=== PATIENT | male | born 1965 | race American Indian/Alaskan Native ===

== ENCOUNTER 2017-10-02 18:03 | Inpatient (IN) | payer OTHER ==
[2017-10-02] MEDS ORDERED: ASPIRIN PO ONE (18:21)
[2017-10-02 19:12] LABS: Basophils # (Auto) 0.1 K/mm3 (0.0-0.1); Basophils % (Auto) 0.7 % (0.0-1.8); Eosinophils # (Auto) 0.1 K/mm3 (0.0-0.4); Eosinophils % (Auto) 0.5 % (0.0-4.3); Hematocrit 41.8 % (35.5-45.6); Hemoglobin 13.4 gm/dl (11.8-15.2); Lymphocytes # (Auto) 1.6 K/mm3 (1.2-5.4); Lymphocytes % (Auto) 12.9 % (13.4-35.0); Mean Corpuscular HGB Conc 32 % (32-34); Mean Corpuscular Hemoglobin 31 pg (28-32); Mean Corpuscular Volume 96 fl (84-94); Monocytes # (Auto) 0.6 K/mm3 (0.0-0.8); Monocytes % (Auto) 5.1 % (0.0-7.3); Platelet Count 221 K/mm3 (140-440); Red Blood Count 4.37 M/mm3 (3.65-5.03); Red Cell Distribution Width 13.2 % (13.2-15.2)
[2017-10-02 19:22] LABS: BUN/Creatinine Ratio 12; Blood Urea Nitrogen 13 mg/dL (9-20); Calcium 9.3 mg/dL (8.4-10.2); Hemolysis Index 24
--- NOTE | 2017-10-03 01:58 | XRay Report ---
FINAL REPORT EXAM: XR KNEE 3V RT HISTORY: right knee pain, swelling, hx gout COMPARISON: None available. FINDINGS: Three views of the right knee obtained. Mild narrowing of the medial joint space compartment with osteophyte. No acute fracture dislocation. No focal bony erosive changes. No suprapatellar effusion. IMPRESSION: No acute bony abnormality. Mild degenerative changes.
--- NOTE | 2017-10-03 02:09 | XRay Report ---
FINAL REPORT EXAM: XR CHEST 1V AP HISTORY: chest pain COMPARISON: None available. FINDINGS: Frontal view(s) of the chest obtained. Cardiac silhouette within normal limits. No gross consolidation or effusion. No pneumothorax. IMPRESSION: No grossly acute findings.
[2017-10-03] MEDS ORDERED: SUBLIMAZE IV ONE (02:16)
[2017-10-03] MEDS ORDERED: TYLENOL PO ONE (02:18)
[2017-10-03] MEDS ORDERED: BABY ASPIRIN PO ONE (02:19)
[2017-10-03] MEDS ORDERED: NACL 0.9% 1000 ML 1,000 ML IV ONE (02:20)
--- NOTE | 2017-10-03 02:20 | Emergency Department Report ---
HPI - General Chief Complaint: Chest Pain Time Seen by Provider: 10/03/17 01:01 - [facility] HPI: The patient is a 51-year-old male who presents for evaluation of right knee pain. The patient reports severe and constant right knee pain since 3 PM yesterday, throbbing in quality, exacerbated with weightbearing and ambulation, improved with rest and elevation. The patient has secondary complaint of chest pain. Denies. The patient denies penetrating trauma to the right knee, or trauma to the chest. He also denies cough, syncope, hemoptysis, unilateral leg swelling. ED Past Medical Hx - Past Medical History Previous Medical History?: No - Surgical History Past Surgical History?: No - Social History Smoking Status: Never Smoker Substance Use Type: None - Medications Home Medications: Home Medications Medication Instructions Recorded Confirmed Last Taken Type Cyclobenzaprine [Flexeril 10mg] 10 mg PO TID PRN #30 tablet 05/04/14 Unknown Rx Potassium Chloride 10 meq PO QDAY #3 capsule.er 05/04/14 Unknown Rx predniSONE [Deltasone] 50 mg PO QDAY #5 tab 05/04/14 Unknown Rx ED Review of Systems ROS: Stated complaint: CHEST PAIN/SOB/ PAIN (R) KNEE Other details as noted in HPI Constitutional: denies: fever ENT: denies: throat or neck pain Respiratory: denies: cough, shortness of breath Cardiovascular: reports chest pain Endocrine: denies unexplained weight loss or gain Gastrointestinal: denies: abdominal pain, nausea Genitourinary: denies: dysuria Musculoskeletal: reports right knee pain denies: leg swelling Skin: denies: rash Neurological: denies: headache Hematological/Lymphatic: denies: easy bleeding or easy bruising Psych: denies sadness or hopelessness Physical Exam - Physical Exam Vital Signs: Vital Signs 10/02/17 18:15 Temperature 100.1 F H Pulse Rate 81 Respiratory 16 Rate Blood Pressure 153/100 O2 Sat by Pulse 100 Oximetry Physical Exam: General: well-nourished, well-developed, no acute distress Head: Normocephalic, atraumatic Eyes: normal sclera ENT: Mucous membranes are pink and moist Neck: trachea midline, neck supple, No neck stiffness, no cervical adenopathy Respiratory: Breath sounds equal bilaterally, no wheezing, rales, or rhonchi Cardio: S1 and S2 present, no murmurs, rubs, gallops, capillary refill is brisk Abdomen: Normoactive bowel sounds, soft abdomen, no tenderness Chest WALL/Back: No tenderness to palpation of the chest wall, no CVA tenderness with percussion Musc: Right knee effusion and tenderness to palpation present, mild redness and warmth present as well, no crepitus or fluctuance, no open wounds, full passive and active range of motion to the right knee intact, including patellar tendon extensor function, no bruising or ecchymosis, no calf muscle tenderness with compression, the compartments are soft and pliable, no sounds compartments syndrome Skin: No rash Neuro: no facial drooping, normal speech Psych: Normal affect ED Course Vital Signs 10/02/17 18:15 Temperature 100.1 F H Pulse Rate 81 Respiratory 16 Rate Blood Pressure 153/100 O2 Sat by Pulse 100 Oximetry ED Medical Decision Making - Lab Data Result diagrams: 10/02/17 18:23 10/02/17 18:23 - Medical Decision Making The patient was seen and examined by myself. The patient is placed on a registered nurse cardiac and continuous pulse ox. On initial evaluation, the patient was found to be in no distress. Evaluation orders were placed. The patient was found to be febrile. The patient is given a tablet of Tylenol for his fever. Lab results. Elevated wbc of 12. As patient's found to have fever with leukocytosis, and tenderness, redness, and warmth to the right knee, evaluation findings are concerning for septic arthritis of the right knee. The patient is given IV vancomycin and IV Rocephin for treatment of his suspected infection. The on-call hospitalist service was contacted. They agreed to admit the patient for further treatment and close monitoring. The ED admit order was placed. The patient was admitted in guarded condition. Critical care attestation.: If time is entered above; I have spent that time in minutes in the direct care of this critically ill patient, excluding procedure time. ED Disposition Clinical Impression: Dehydration, Acute chest pain Septic joint of right knee joint Qualifiers: Septic arthritis organism: due to unspecified organism Qualified Code(s): M00.9 - Pyogenic arthritis, unspecified Disposition: OP ADMIT IP TO THIS HOSP Is pt being admited?: Yes Does the pt Need Aspirin: Yes Condition: Serious Time of Disposition: 01:58
[2017-10-03] MEDS ORDERED: VANCOMYCIN PHARMACY TO DOSE IV SCH (03:00)
[2017-10-03] MEDS ORDERED: VANCOMYCIN 1,500 MG in NACL 0.9% 500 ML 500 ML IV ONE (03:00)
[2017-10-03] MEDS ORDERED: ZOFRAN IV ONE (03:00)
[2017-10-03] MEDS ORDERED: VANCOMYCIN/NS 1 GM/250 ML 1 GM/250 ML BAG IV SCH (03:00)
[2017-10-03] MEDS ORDERED: MORPHINE IV PRN (03:57)
[2017-10-03] MEDS ORDERED: SODIUM CHLORIDE FLUSH SYRINGE 10 ML IV PRN (03:57)
[2017-10-03] MEDS ORDERED: TYLENOL PO PRN (03:57)
[2017-10-03] MEDS ORDERED: ZOFRAN IV PRN (03:57)
--- NOTE | 2017-10-03 04:01 | History and Physical Report ---
History of Present Illness Date of examination: 10/03/17 History of present illness: 51-year-old man with a normal medical problem comes to the emergency room complaining of chest pain located in the left chest which she described as a sharp pain that started this morning. Pain is intermittent for hours, intensity 6/10, no radiation, he cannot identify exacerbating or relieving factors. No nausea vomiting, diaphoresis, shortness of breath. Also complaining of right knee pain Review of systems Constitutional: no weight loss, chills, fever Ears, eyes, nose, mouth and throat: no nasal congestion, no nasal discharge, no sinus pressure, no vision change, no red eye. Neck: No neck pain or rigidity. Cardiovascular: no palpitations Respiratory: no cough, shortness of breath Gastrointestinal: no abdominal pain hematochezia Genitourinary : no frequency , no hematuria Musculoskeletal: no joint swelling or muscle ache Integumentary: no rash, no pruritis Neurological: no parathesias, no numbness, no focal weakness Endocrine: no cold or heat intolerance, no polyuria or polydipsia Hematologic/Lymphatic: no easy bruising, no easy bleeding, no gland swelling Allergic/Immunologic: no urticaria, no angioedema. PAST MEDICAL HISTORY: None PAST SURGICAL HISTORY: None SOCIAL HISTORY: No alcohol, no drugs, tobacco FAMILY HISTORY: Hypertension Medications and Allergies Allergies Allergy/AdvReac Type Severity Reaction Status Date / Time No Known Allergies Allergy Verified 07/11/15 01:22 Home Medications Medication Instructions Recorded Confirmed Last Taken Type Cyclobenzaprine [Flexeril 10mg] 10 mg PO TID PRN #30 tablet 05/04/14 Unknown Rx Potassium Chloride 10 meq PO QDAY #3 capsule.er 05/04/14 Unknown Rx predniSONE [Deltasone] 50 mg PO QDAY #5 tab 05/04/14 Unknown Rx Active Meds: Active Medications Acetaminophen (Tylenol) 650 mg PO Q4H PRN PRN Reason: Pain MILD(1-3)/Fever >100.5/[place] Enoxaparin Sodium (Lovenox) 30 mg SUB-Q QDAY [facility] Vancomycin HCl 1,500 mg/ (Sodium Chloride) 515 mls @ 333.333 mls/hr IV ONCE ONE Stop: 10/03/17 04:32 Last Admin: 10/03/17 03:58 Dose: 333.333 mls/hr Vancomycin HCl 1,250 mg/ (Sodium Chloride) 262.5 mls @ 166.667 mls/hr IV Q12H [facility] Ceftriaxone Sodium (Rocephin/Ns 1 Gm/50 Ml) 1 gm in 50 mls @ 100 mls/hr IV Q24HR [facility]; Protocol Morphine Sulfate (Morphine) 2 mg IV Q4H PRN PRN Reason: Pain, Moderate (4-6) Ondansetron HCl (Zofran) 4 mg IV Q8H PRN PRN Reason: Nausea And Vomiting Sodium Chloride (Sodium Chloride Flush Syringe 10 Ml) 10 ml IV BID [facility] Sodium Chloride (Sodium Chloride Flush Syringe 10 Ml) 10 ml IV PRN PRN PRN Reason: LINE FLUSH Vancomycin HCl (Vancomycin Pharmacy To Dose) 1 each IV PKCONSULT [facility] Exam - Physical Exam Narrative exam: Gen. appearance: Patient lying in bed, no apparent distress HEENT: Normocephalic, atraumatic, pupils equally round and reactive to light, extraocular movement intact, and no sclericterus,. No JVD or thyromegaly or nodule,neck supple, no carotid bruit ,mucous membranes moist, no exudate or erythema Heart: S1, S2, regular rate and rhythm Lungs: Clear bilaterally, breathing comfortable Abdomen: Positive bowel sounds, non-tender, nondistended, no organomegaly Extremity: Right knee tenderness, no swelling or effusion, no edema cyanosis, clubbing Skin: no rash, dry, warm Neuro: Oriented 3, cranial nerves II-12 intact, speech is fluent, motor and sensory intact - Constitutional Vitals: Temp Pulse Resp BP Pulse Ox 99.9 F H 87 18 97/54 98 10/03/17 02:26 10/03/17 02:26 10/03/17 02:26 10/03/17 02:26 10/03/17 02:26 Results - Labs CBC & Chem 7: 10/02/17 18:23 10/02/17 18:23 Labs: Abnormal lab results 10/02/17 10/02/17 Range/Units 18:23 18:23 WBC 12.2 H (4.5-11.0) K/mm3 MCV 96 H (84-94) fl Lymph % (Auto) 12.9 L (13.4-35.0) % Seg Neutrophils % 80.8 H (40.0-70.0) % Seg Neutrophils # 9.9 H (1.8-7.7) K/mm3 Chloride 97.4 L (98-107) mmol/L Glucose 110 H (75-100) mg/dL - Imaging and Cardiology EKG: image reviewed Chest x-ray: report reviewed Assessment and Plan Assessment Chest pain, rule out ACS Right knee pain Fever Plan Admit medicine Start IV morphine,emperic Antibiotic, stress test Orthopedic is consulted see the patient DVT prophylaxis
[2017-10-03] MEDS ORDERED: BENADRYL IV PRN (05:19)
[2017-10-03] MEDS ORDERED: ROCEPHIN/NS 2 GM/100 ML 2 GM/100 ML BAG IV SCH (10:00)
[2017-10-03] MEDS ORDERED: LEXISCAN IV ONE ×2 (11:14→11:22)
[2017-10-03] MEDS ORDERED: VANCOMYCIN 1,250 MG in NACL 0.9% 250ML 250 ML IV SCH (12:00)
[2017-10-03] MEDS: ROCEPHIN/NS 1 GM/50 ML 1 GM/50 ML BAG IV SCH (14:15)
[2017-10-03] MEDS: LOVENOX SUB-Q SCH (14:16)
[2017-10-03] MEDS: SODIUM CHLORIDE FLUSH SYRINGE 10 ML IV SCH ×2 (14:17→22:00)
[2017-10-03 14:51] LABS: Hemoglobin 12.5 gm/dl (11.8-15.2); Mean Corpuscular HGB Conc 33 % (32-34); Mean Corpuscular Hemoglobin 31 pg (28-32); Mean Corpuscular Volume 95 fl (84-94); Platelet Count 196 K/mm3 (140-440); Red Blood Count 4.01 M/mm3 (3.65-5.03); Red Cell Distribution Width 12.9 % (13.2-15.2)
--- NOTE | 2017-10-03 17:35 | Event Note ---
Date: 10/03/17 patient with chest pain, right knee pain
--- NOTE | 2017-10-03 19:05 | Consultation ---
History of Present Illness - HPI Consult date: 10/03/17 Consult reason: joint pain History of present illness: 51-year-old male who complains of right knee pain and swelling patient denies a history of trauma states he has had an episode of gout to his left lower extremity last year patient also admits that his father has gout too, asked to evaluate for the possibility of septic joint Medications and Allergies Allergies Allergy/AdvReac Type Severity Reaction Status Date / Time vancomycin Allergy Itching Verified 10/03/17 05:30 Active Meds: Active Medications Acetaminophen (Tylenol) 650 mg PO Q4H PRN PRN Reason: Pain MILD(1-3)/Fever >100.5/[place] Diphenhydramine HCl (Benadryl) 25 mg IV Q6H PRN PRN Reason: Itching Last Admin: 10/03/17 05:29 Dose: 25 mg Enoxaparin Sodium (Lovenox) 40 mg SUB-Q QDAY [facility] Last Admin: 10/03/17 14:16 Dose: 40 mg Ceftriaxone Sodium (Rocephin/Ns 1 Gm/50 Ml) 1 gm in 50 mls @ 100 mls/hr IV Q24HR [facility]; Protocol Last Admin: 10/03/17 14:15 Dose: 100 mls/hr Morphine Sulfate (Morphine) 2 mg IV Q4H PRN PRN Reason: Pain, Moderate (4-6) Ondansetron HCl (Zofran) 4 mg IV Q8H PRN PRN Reason: Nausea And Vomiting Sodium Chloride (Sodium Chloride Flush Syringe 10 Ml) 10 ml IV BID [facility] Last Admin: 10/03/17 14:17 Dose: 10 ml Sodium Chloride (Sodium Chloride Flush Syringe 10 Ml) 10 ml IV PRN PRN PRN Reason: LINE FLUSH Physical Examination - Physical exam Narrative exam: At the patient's right knee there is a 1-2+ joint effusion patient is able to actively flex and extend as well as passively there is no overlying redness or erythema Plain x-rays right knee were reviewed by me and show mild degenerative changes only Assessment and Plan Right knee effusion doubt septic origin most likely a gouty attack Recommend observation uric acid levels and treatment with allopurinol or a nonsteroidal anti-inflammatory
[2017-10-04 07:30] LABS: Basophils # (Auto) 0.1 K/mm3 (0.0-0.1); Basophils % (Auto) 0.9 % (0.0-1.8); Eosinophils # (Auto) 0.2 K/mm3 (0.0-0.4); Hematocrit 38.2 % (35.5-45.6); Hemoglobin 12.6 gm/dl (11.8-15.2); Lymphocytes # (Auto) 2.5 K/mm3 (1.2-5.4); Lymphocytes % (Auto) 37.9 % (13.4-35.0); Mean Corpuscular HGB Conc 33 % (32-34); Mean Corpuscular Hemoglobin 31 pg (28-32); Mean Corpuscular Volume 94 fl (84-94); Monocytes # (Auto) 0.6 K/mm3 (0.0-0.8); Monocytes % (Auto) 9.8 % (0.0-7.3); Platelet Count 196 K/mm3 (140-440); Red Blood Count 4.05 M/mm3 (3.65-5.03); Red Cell Distribution Width 12.6 % (13.2-15.2)
[2017-10-04 07:51] LABS: BUN/Creatinine Ratio 12; Blood Urea Nitrogen 12 mg/dL (9-20); Calcium 8.7 mg/dL (8.4-10.2); Hemolysis Index 3
[2017-10-04] MEDS ORDERED: MOTRIN PO PRN (08:30)
[2017-10-04 09:42] VITALS: BP 116/78
--- NOTE | 2017-10-04 10:42 | Treadmill Report ---
NUCLEAR PERFUSION SCAN NUCLEAR STRESS TEST PROTOCOL: The patient was brought to the stress lab in a postabsorptive state, given 10 mCi of technetium 99m at rest. The patient underwent rest imaging. The patient underwent Lexiscan stress test per standard protocol. At peak stress, the patient was given 26 mCi of technetium 99m. Shortly thereafter, the patient underwent stress imaging. Raw imaging reveals mild GI artifact, no significant motion artifact. SPECT image examined carefully in horizontal long axis, vertical long axis, short axis views. There is normal homogenous uptake of radioisotope in all reported segments. No evidence of a significant fixed or reversible perfusion defects suggestive of prior infarction or ischemia. Gated wall motion was normal systolic thickening, calculated ejection fraction of 76%. No TID. CONCLUSIONS: 1. Normal myocardial perfusion scan without evidence of active ischemia or prior infarction. 2. Normal left ventricular systolic performance without evidence of transient ischemic dilatation or stress-induced segmental wall motion abnormalities. 3. Normal Lexiscan stress test without evidence of diagnostic ST changes, arrhythmias or chest pain during stress or recovery. [facility]# [id number] DAVID/CYRIL
[2017-10-04] MEDS: LOVENOX SUB-Q SCH (11:18)
[2017-10-04] MEDS: ROCEPHIN/NS 1 GM/50 ML 1 GM/50 ML BAG IV SCH (11:18)
[2017-10-04] MEDS: SODIUM CHLORIDE FLUSH SYRINGE 10 ML IV SCH (11:19)
[2017-10-04] MEDS ORDERED: K-DUR PO NR (11:43)
--- NOTE | 2017-10-04 11:45 | Discharge Summary ---
Providers - Providers Date of Admission: 10/03/17 03:57 Date of discharge: 10/04/17 Attending physician: IRIS CHRISTIANSON 10/03/17 02:29 Consult to Physician [CONS] Stat Comment: Consulting Provider: ROBERTO JEONG Physician Instructions: Reason For Exam: suspected right knee joint infection Primary care physician: GABINO BOYCE Hospitalization Condition: Fair Disposition: DC-01 TO HOME OR SELFCARE Core Measure Documentation - Palliative Care Palliative Care/ Comfort Measures: Not Applicable - Core Measures Any of the following diagnoses?: none Exam - Constitutional Vitals: Temp Pulse Resp BP Pulse Ox 98.7 F 79 16 116/78 98 10/04/17 08:54 10/04/17 08:54 10/04/17 08:54 10/04/17 08:54 10/04/17 08:54 Plan Activity: no restrictions Diet: regular Additional Instructions: 1.Follow up with PCP in 1 week Follow up with: GABINO BOYCE MD [Primary Care Provider] - 3-5 Days
== END 2017-10-04 15:00 | disposition home or self-care (01) | DRG 550 ==
LOC: ED 18:03 → 4A 10-03 03:57
PROVIDERS: ADMIT Internal Medicine; ATTEND Internal Medicine
DX: M00.9 Pyogenic arthritis, unspecified (principal); M25.461 Effusion, right knee; R07.9 Chest pain, unspecified; M10.9 Gout, unspecified; E86.0 Dehydration; Z82.49 Family history of ischemic heart disease and other diseases of the circulatory system; Z79.899 Other long term (current) drug therapy
CPT/HCPCS: 36415; 71045; 78452; 80048; 84484; 84550; 85025; 85027; 93005; 93010; 93017; A9502; J0696; J1200; J1650; J2270; J2405; J2785; J3010; J3370; J7030; J7040; J7050

== ENCOUNTER 2018-08-22 00:52 | Emergency (ER) | payer OTHER ==
--- NOTE | 2018-08-22 02:45 | XRay Report ---
PROCEDURE: XR CHEST ROUTINE 2V TECHNIQUE: PA and lateral chest radiographs were obtained. HISTORY: left chest pain COMPARISONS: 10/03/2017. FINDINGS: Heart: Normal. Mediastinum/Vessels: Normal. Lungs/Pleural space: Normal. Bony thorax: No acute osseous abnormality. IMPRESSION: No acute cardiopulmonary process.. This document is electronically signed by Sohan Harris MD., August 22 2018 02:43:38 AM ET
--- NOTE | 2018-08-22 02:46 | XRay Report ---
PROCEDURE: XR SHOULDER 2+V LT TECHNIQUE: 3 views of left shoulder. HISTORY: Left shoulder pain. COMPARISONS: None available. FINDINGS: Mild degenerative changes of the acromioclavicular joint. Mild sclerosis and cystic changes at the greater tuberosity best appreciated on the abducted external rotation view may be secondary to underlying rotator cuff degeneration. The coracoclavicular interval is maintained. Left upper lungs clear. There is no dislocation are identified Hill-Sachs injury. IMPRESSION: 1. No acute fracture or dislocation. 2. Mild sclerosis and cystic changes of the greater tuberosity which may be secondary to underlying r otator cuff tendon degeneration. If concern for rotator cuff tear, dedicated MRI can further evaluate . 3. Mild acromioclavicular degenerative changes. This document is electronically signed by Rafa Gagnon DO., August 22 2018 02:44:52 AM ET
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
[2018-08-22] MEDS ORDERED: NORCO 5/325 PO STA (08:59)
[2018-08-22 09:06] VITALS: BP 140/90
== END 2018-08-22 09:04 | disposition home or self-care (01) ==
LOC: ED 00:52
DX: M79.18 Myalgia, other site (principal); M25.512 Pain in left shoulder; V49.49XA Driver injured in collision with other motor vehicles in traffic accident, initial encounter; Y93.89 Activity, other specified; Y92.89 Other specified places as the place of occurrence of the external cause; Y99.8 Other external cause status
CPT/HCPCS: 71046; 93005; 93010